=== PATIENT | male | born 1965 | race Asian ===

== ENCOUNTER 2024-12-08 17:52 | Emergency (ER) | payer OTHER ==
[~2024-12-08] VITALS: Ht 160 cm; Wt 65.0 kg
[2024-12-08 18:35] VITALS: BP 143/82; PULSE 98; RESP 18; TEMP 97.8; O2SAT 99
[2024-12-08 19:58] LABS: COVID AG,FIA SOURCE NASAL SWAB
[2024-12-08 20:20] LABS: INFLUENZA TYPE A NEGATIVE FOR TYPE A (NEGATIVE); INFLUENZA TYPE B NEGATIVE FOR TYPE B (NEGATIVE); SARS-COV2 (COVID) ANTIGEN,FIA Negative (Negative)
[2024-12-08] MEDS ORDERED: AZIT250T9 PO (22:03)
[2024-12-08] MEDS ORDERED: GUAI1TBM19 PO (22:03)
[2024-12-08] MEDS: LIDOCAINE/PF 1% 2 ML VIAL IM ONE (22:05)
[2024-12-08] MEDS: CefTRIAXone SODIUM 1 GM/VIAL IM ONE (22:05)
== END 2024-12-08 22:25 | disposition home or self-care (01) ==
LOC: EMS 17:52
DX: J18.9 Pneumonia, unspecified organism (principal); R09.81 Nasal congestion; E11.9 Type 2 diabetes mellitus without complications; I10 Essential (primary) hypertension; E78.00 Pure hypercholesterolemia, unspecified; Z20.822 Contact with and (suspected) exposure to COVID-19
CPT/HCPCS: 99284; 71045; 87426; 87430; 87804; 82962; 96372; J0696; J3490